=== PATIENT | female | born 1965 | race Caucasian/White ===

== ENCOUNTER 2023-07-29 06:12 | Day surgery (SDC) | payer MEDICAID ==
[~2023-07-29] VITALS: Ht 154.9 cm; Wt 68.9 kg
[2023-07-29] MEDS ORDERED: fentaNYL CITRATE/PF 100 MCG/2 ML AMP ONE (07:09)
[2023-07-29] MEDS ORDERED: SIMETHICONE 40 MG/0.6 ML ML ONE (07:09)
[2023-07-29] MEDS ORDERED: MIDAZOLAM HCL 5 MG/5 ML VIAL ONE (07:10)
[2023-07-29 12:40] VITALS: O2SAT 98
[2023-07-29 14:29] VITALS: BP_SYST 125; PULSE 76; RESP 27; TEMP 97.2
== END 2023-07-29 09:15 | disposition home or self-care (01) ==
LOC: SDS 06:12 → SMU 06:17 → SDS 09:15
PROVIDERS: ATTEND Internal Medicine
DX: R19.4 Change in bowel habit (principal); D12.2 Benign neoplasm of ascending colon; K63.5 Polyp of colon; K64.8 Other hemorrhoids; J45.909 Unspecified asthma, uncomplicated; Z90.710 Acquired absence of both cervix and uterus; Z98.891 History of uterine scar from previous surgery; Z87.891 Personal history of nicotine dependence; Z79.899 Other long term (current) drug therapy; Z80.0 Family history of malignant neoplasm of digestive organs
CPT/HCPCS: 45380; 45385; 99152; 88305; G0378; J2250; J3010